=== PATIENT | female | born 1965 | race African-American/Black ===

== ENCOUNTER 2017-08-25 23:03 | Emergency (ER) | payer OTHER ==
[~2017-08-25] VITALS: Ht 167.6 cm; Wt 91.0 kg
[2017-08-26 03:27] VITALS: BP 147/90
== END 2017-08-26 03:20 | disposition left against medical advice (07) ==
LOC: ER 08-26 00:04
DX: M54.2 Cervicalgia (principal); M54.9 Dorsalgia, unspecified; Z53.21 Procedure and treatment not carried out due to patient leaving prior to being seen by health care provider
CPT/HCPCS: 81025

== ENCOUNTER 2020-03-06 23:17 | Emergency (ER) | payer MEDICAID, OTHER ==
[~2020-03-06] VITALS: Ht 167.6 cm; Wt 76.9 kg
[2020-03-07] MEDS ORDERED: INSULIN REGULAR (HUMULIN R) 300UNITS/3ML SUBCUT SCH (02:00)
[2020-03-07 03:28] VITALS: BP 124/83
== END 2020-03-07 03:31 | disposition home or self-care (01) ==
LOC: ER 23:17
DX: E11.65 Type 2 diabetes mellitus with hyperglycemia (principal); G62.9 Polyneuropathy, unspecified; I10 Essential (primary) hypertension
CPT/HCPCS: 82962; 96372; 99283; J1815

== ENCOUNTER 2020-07-04 16:30 | Emergency (ER) | payer MEDICAID ==
[~2020-07-04] VITALS: Ht 167.6 cm; Wt 72.7 kg
[2020-07-04 18:06] VITALS: BP 141/83
[2020-07-04] MEDS ORDERED: KETOROLAC 30MG/ML VIAL IM ONE (18:45)
== END 2020-07-04 19:51 | disposition home or self-care (01) ==
LOC: ER 16:46
DX: G89.4 Chronic pain syndrome (principal); M54.5 Low back pain; M51.37 Other intervertebral disc degeneration, lumbosacral region; E11.40 Type 2 diabetes mellitus with diabetic neuropathy, unspecified
CPT/HCPCS: 72100; 96372; 99283; J1885